=== PATIENT | male | born 1995 | race African-American/Black ===

== ENCOUNTER 2019-09-19 06:55 | Emergency (ER) | payer OTHER ==
[2019-09-19 13:33] VITALS: BP 134/86; TEMP 98.2; O2SAT 99
--- NOTE | 2019-09-24 14:11 | EDPHYS ---
Physician Documentation [facility] Name: Celeste Storm Jr Age: 24 yrs Sex: Male : 1995 Arrival Date: 09/19/2019 Time: 06:59 Bed 12 Private MD: ED Physician Davis Rust HPI: 09/18 07:39 This 24 yrs old Black Male presents to ER via Ambulatory with complaints of Fever. jmm 07:39 Onset: The symptoms/episode began/occurred today. Modifying factors: there are no [facility] obvious modifying factors. Associated signs and symptoms: Pertinent negatives: None. The patient has not experienced similar symptoms in the past. Patient states his temp was measured as 99.2F at work. Denies any symptoms. . Historical: - Allergies: 07:10 No Known Allergies; hb - Home Meds: 07:10 None [Active]; hb - PMHx: 07:10 None; hb - PSHx: 07:10 None; hb - Immunization history:: Adult Immunizations up to date. - Social history:: Smoking status: Patient denies any tobacco usage or history of. ROS: 07:39 Constitutional: Negative for fever, chills, and weight loss, Cardiovascular: Negative jmm for chest pain, palpitations, and edema, Respiratory: Negative for shortness of breath, cough, wheezing, and pleuritic chest pain, Abdomen/GI: Negative for abdominal pain, nausea, vomiting, diarrhea, and constipation, Back: Negative for injury and pain, Neuro: Negative for headache, weakness, numbness, tingling, and seizure. 07:39 All other systems are negative. Exam: 07:39 Constitutional: This is a well developed, well nourished patient who is awake, alert, jmm and in no acute distress. Head/Face: atraumatic. Eyes: EOMI, no conjunctival erythema appreciated ENT: Moist Mucus Membranes Neck: Trachea midline, Supple Chest/axilla: Normal chest wall appearance and motion. 07:39 Back: Normal ROM Skin: General appearance color normal MS/ Extremity: Moves all extremities, no obvious deformities appreciated, no edema noted to the lower extremities Neuro: Awake and alert, normal gait Psych: Behavior is normal, Mood is normal, Patient is cooperative and pleasant 07:39 Cardiovascular: Rate: normal, Rhythm: regular. 07:39 Respiratory: the patient does not display signs of respiratory distress, Respirations: normal, Breath sounds: are clear throughout. 07:39 Abdomen/GI: Inspection: abdomen appears normal, Bowel sounds: normal, Palpation: abdomen is soft and non-tender. Vital Signs: 07:08 BP 134 / 86; Pulse 71; Resp 16; Temp 98.2(TE); Pulse Ox 99% on R/A; Weight 65.77 kg; hb Height 5 ft. 10 in. (177.80 cm); Pain 0/10; 07:08 Body Mass Index 20.81 (65.77 kg, 177.80 cm) hb MDM: 07:[address] [facility] 07:40 Data reviewed: vital signs, nurses notes. Counseling: I had a detailed discussion with radha the patient and/or guardian regarding: the historical points, exam findings, and any diagnostic results supporting the discharge/admit diagnosis, the need for outpatient follow up, to return to the emergency department if symptoms worsen or persist or if there are any questions or concerns that arise at home. ED course: Patient is alert and non toxic in appearance in the ED. No signs of resp distress. . Administered Medications: No medications were administered Disposition: 23:49 Co-signature as Attending Physician, Davis Rust MD. ma2 Disposition: 09/19/19 07:42 Discharged to Home. Impression: Person with feared health complaint in whom no diagnosis is made. - Condition is Stable. - Discharge Instructions: Form - Return To Work. - Medication Reconciliation Form, Thank You Letter, Antibiotic Education, Prescription Opioid Use form. - Follow up: Private Physician; When: As needed; Reason: Recheck today's complaints, Continuance of care, Re-evaluation by your physician. Signatures: Erlin Leyva PA PA jmm Baxter, Heather, RN RN hb Alzahri, Mohammad, MD MD ma2 Corrections: (The following items were deleted from the chart) 07:50 07:42 09/19/2019 07:42 Discharged to Home. Impression: Person with feared health hb complaint in whom no diagnosis is made. Condition is Stable. Forms are Medication Reconciliation Form, Thank You Letter, Antibiotic Education, Prescription Opioid Use. Follow up: Private Physician; When: As needed; Reason: Recheck today's complaints, Continuance of care, Re-evaluation by your physician. radham
--- NOTE | 2019-09-24 14:12 | ER ---
Nurse's Notes [facility] Name: Celeste Storm Jr Age: 24 yrs Sex: Male : 1995 Arrival Date: 09/19/2019 Time: 06:59 Bed 12 Private MD: Diagnosis: Person with feared health complaint in whom no diagnosis is made Presentation: 09/18 07:08 Chief complaint: T99.3 when he was screened at work this morning, sent here for hb clearance. Denies cough/SOB/fever/pain. Coronavirus screen: Proceed with normal triage. Ebola Screen: No symptoms or risks identified at this time. Initial Sepsis Screen: Does the patient meet any 2 criteria? No. Patient's initial sepsis screen is negative. Does the patient have a suspected source of infection? No. Patient's initial sepsis screen is negative. Risk Assessment: Do you want to hurt yourself or someone else? Patient reports no desire to harm self or others. Onset of symptoms was September 19, 2019. 07:08 Method Of Arrival: Ambulatory hb 07:08 Acuity: PAT 5 hb Triage Assessment: 07:09 General: Appears in no apparent distress. Behavior is calm, cooperative. Pain: Denies hb pain. EENT: No signs and/or symptoms were reported regarding the EENT system. Neuro: Level of Consciousness is awake, alert, obeys commands. Cardiovascular: Patient's skin is warm and dry. Respiratory: Respiratory effort is even, unlabored. GI: No signs and/or symptoms were reported involving the gastrointestinal system. : No signs and/or symptoms were reported regarding the genitourinary system. Derm: Skin is pink, warm \T\ dry. Musculoskeletal: No signs and/or symptoms reported regarding the musculoskeletal system. Historical: - Allergies: 07:10 No Known Allergies; hb - Home Meds: 07:10 None [Active]; hb - PMHx: 07:10 None; hb - PSHx: 07:10 None; hb - Immunization history:: Adult Immunizations up to date. - Social history:: Smoking status: Patient denies any tobacco usage or history of. Screenin:29 Abuse screen: Denies threats or abuse. Denies injuries from another. Nutritional hb screening: No deficits noted. Tuberculosis screening: No symptoms or risk factors identified. Fall Risk None identified. Assessment: 07:29 General: SEE TRIAGE. hb Vital Signs: 07:08 BP 134 / 86; Pulse 71; Resp 16; Temp 98.2(TE); Pulse Ox 99% on R/A; Weight 65.77 kg; hb Height 5 ft. 10 in. (177.80 cm); Pain 0/10; 07:08 Body Mass Index 20.81 (65.77 kg, 177.80 cm) hb ED Course: 06:59 Patient arrived in ED. mr 07:10 Triage completed. hb 07:10 Arm band placed on. hb 07:17 Erlin Leyva PA is PHCP. radha 07:17 Davis Rust MD is Attending Physician. radha 07:28 Vicki Guy, RN is Primary Nurse. hb 07:29 Patient has correct armband on for positive identification. Call light in reach. hb 07:49 No provider procedures requiring assistance completed. Patient did not have IV access hb during this emergency room visit. Administered Medications: No medications were administered Outcome: 07:42 Discharge ordered by MD. [facility] 07:49 Discharged to home ambulatory. hb 07:49 Condition: stable 07:49 Discharge instructions given to patient, Instructed on discharge instructions, follow up and referral plans. Demonstrated understanding of instructions, follow-up care. 07:50 Patient left the ED. hb Signatures: Erlin Leyva PA PA jmm Rivera, Mary mr Vicki Guy, RN RN hb
== END 2019-09-19 07:50 | disposition home or self-care (01) ==
LOC: ER 06:55
DX: Z71.1 Person with feared health complaint in whom no diagnosis is made (principal)
CPT/HCPCS: 99281

== ENCOUNTER → 2023-06-07 | Emergency (ER) | payer OTHER ==
[~2023-06-07] MED LIST: CETIRIZINE HCL 5 MG TABLET ONE; DIPHENHYDRAMINE 25 MG TAB/CAP ONE; IBUPROFEN 400 MG TAB ONE; METHYLPREDNISOLONE 125 MG INJ ONE
--- NOTE | 2023-06-07 07:17 | ER ---
Nurse's Notes [facility] Name: Celeste Storm Jr Age: 28 yrs Sex: Male : 1995 Arrival Date: 06/07/2023 Time: 06:15 Bed 19 Private MD: Diagnosis: Nasal congestion Presentation: 06/07 06:46 Chief complaint: Patient states: I think my allergies are acting out redness of eyes, ha1 nasal congestion, and runny nose. 06:46 Coronavirus screen: Vaccine status: Patient reports being unvaccinated. Ebola Screen: ha1 No symptoms or risks identified at this time. Initial Sepsis Screen: Does the patient meet any 2 criteria? No. Patient's initial sepsis screen is negative. Does the patient have a suspected source of infection? No. Patient's initial sepsis screen is negative. Risk Assessment: Do you want to hurt yourself or someone else? Patient reports no desire to harm self or others. Onset of symptoms was June 07, 2023. 06:46 Method Of Arrival: Ambulatory ha1 06:46 Acuity: PAT 4 ha1 Triage Assessment: 06:46 General: Appears uncomfortable, Behavior is cooperative. Pain: Denies pain. Neuro: ha1 Level of Consciousness is awake, alert, obeys commands, Oriented to person, place, time, situation. Cardiovascular: Capillary refill < 3 seconds Patient's skin is warm and dry. Respiratory: Airway is patent Respiratory effort is even, unlabored, Respiratory pattern is regular, symmetrical. GI: No signs and/or symptoms were reported involving the gastrointestinal system. Abdomen is flat, non-distended. : No signs and/or symptoms were reported regarding the genitourinary system. Derm: Skin is normal. Musculoskeletal: Circulation, motion, and sensation intact. Range of motion: intact in all extremities. Historical: - Allergies: 06:56 No Known Allergies; ha1 - PMHx: 06:56 seasonal allergies; ha1 - Immunization history:: Adult Immunizations not up to date. - Social history:: Smoking status: Patient denies any tobacco usage or history of. - Family history:: not pertinent. Screenin:40 [facility] ED Fall Risk Assessment (Adult) History of falling in the last 3 months, ph including since admission No falls in past 3 months (0 pts) Score/Fall Risk Level 0 - 2 = Low Risk Oriented to surroundings, Maintained a safe environment, Provided non-skid footwear, Hourly rounding (assess needs \T\ fall precautionary measures) done. Abuse screen: Denies threats or abuse. Denies injuries from another. Nutritional screening: No deficits noted. Tuberculosis screening: No symptoms or risk factors identified. Assessment: 07:42 General: Appears in no apparent distress. comfortable, Behavior is calm, cooperative, ph appropriate for age. Pain: Denies pain. Neuro: Level of Consciousness is awake, alert, obeys commands, Oriented to person, place, time, situation. Cardiovascular: Capillary refill < 3 seconds in bilateral fingers Patient's skin is warm and dry. Respiratory: Airway is patent Respiratory effort is even, unlabored. GI: No signs and/or symptoms were reported involving the gastrointestinal system. EENT: Eyes are tearing on right eye and left eye Sclera/Cornea are reddened in right eye and left eye. Derm: Skin is pink, warm \T\ dry. Vital Signs: 06:46 BP 131 / 103; Pulse 62; Resp 17 S; Temp 98.5(O); Pulse Ox 100% on R/A; Weight 64.41 kg; ha1 Height 5 ft. 9 in. ; 07:44 BP 129 / 89; Pulse 61; Resp 18; Temp 98; Pulse Ox 99% on R/A; ph 06:46 Body Mass Index 20.97 (64.41 kg, 175.26 cm) ha1 ED Course: 06:20 Patient arrived in ED. gm2 06:46 Evan Rice MD is Attending Physician. sp4 06:46 Patient has correct armband on for positive identification. Bed in low position. Call ha1 light in reach. Side rails up X 1. 06:56 Triage completed. ha1 07:22 Sarah Sorensen, WANDA is Primary Nurse. ph 07:40 Arm band placed on. ph 07:41 No provider procedures requiring assistance completed. Patient did not have IV access ph during this emergency room visit. Administered Medications: 07:39 Drug: diphenhydrAMINE PO 25 mg PO once Route: PO; ph 07:40 Follow up: Response: No adverse reaction ph 07:39 Drug: Loratadine PO 10 mg PO once Route: PO; ph 07:39 Follow up: Response: No adverse reaction ph 07:39 Drug: Ibuprofen PO 800 mg PO once Route: PO; ph 07:39 Follow up: Response: No adverse reaction ph 07:40 Drug: MethylPREDNISolone Sodium Succinate IM 125 mg IM once Route: IM; Site: right ph deltoid; 07:40 Follow up: Response: No adverse reaction ph Medication: 06:59 VIS not applicable for this client. ha1 Outcome: 07:16 Discharge ordered by . leann 07:44 Discharged to home ambulatory, ph 07:44 Condition: good 07:44 Discharge instructions given to patient, Instructed on discharge instructions, follow up and referral plans. medication usage, Demonstrated understanding of instructions, follow-up care, medications, Prescriptions given X 4, 07:45 Patient left the ED. ph Signatures: Sarah Sorensen RN RN ph Lakisha Ramachandran RN RN ha1 Evan Rice MD MD sp4 Gisele Garcia gm2
--- NOTE | 2023-06-07 07:17 | EDPHYS ---
Physician Documentation [facility] Name: Celeste Storm Jr Age: 28 yrs Sex: Male : 1995 Arrival Date: 06/07/2023 Time: 06:15 Bed 19 Private MD: ED Physician Evan Rice HPI: 06/07 06:46 This 28 yrs old Black Male presents to ER via Unassigned with complaints of Nasal sp4 Congestion, Runny Nose, Redness of Eye, Cough. 07:10 28-year-old male presents with 1 week of nasal congestion, difficulty breathing, runny sp4 nose, bilateral eye redness and cough. . Historical: - Allergies: 06:56 No Known Allergies; ha1 - PMHx: 06:56 seasonal allergies; ha1 - Immunization history:: Adult Immunizations not up to date. - Social history:: Smoking status: Patient denies any tobacco usage or history of. - Family history:: not pertinent. ROS: 07:10 Constitutional: Negative for fever, chills, and weight loss, positive for congestion, sp4 cough, runny nose 07:10 All other systems are negative, Exam: 07:10 Constitutional: This is a well developed, well nourished patient who is awake, alert, sp4 and in no acute distress. Head/Face: Normocephalic, atraumatic. Eyes: Pupils equal round and reactive to light, extra-ocular motions intact. Lids and lashes normal. Conjunctiva and sclera are not injected. Cornea within normal limits. Periorbital areas with no swelling, redness, or edema. ENT: Nares patent. Bilateral nasal congestion and runny nose, Tympanic membranes are normal and external auditory canals are clear. Oropharynx with no redness, swelling, or masses, exudates, or evidence of obstruction, uvula midline. Mucous membranes moist. Neck: Trachea midline, no thyromegaly or masses palpated, and no cervical lymphadenopathy. Supple, full range of motion without nuchal rigidity, or vertebral point tenderness. Chest/axilla: Normal chest wall appearance and motion. Nontender with no deformity. No lesions are appreciated. Cardiovascular: Regular rate and rhythm with a normal S1 and S2. No gallops, murmurs, or rubs. Normal PMI, no JVD. No pulse deficits. Respiratory: Lungs have equal breath sounds bilaterally, clear to auscultation and percussion. No rales, rhonchi or wheezes noted. No increased work of breathing, no retractions or nasal flaring. Abdomen/GI: Soft, non-tender, with normal bowel sounds. No distension or tympany. No guarding or rebound. No evidence of tenderness throughout. Back: No spinal tenderness. No costovertebral tenderness. Skin: Warm, dry with normal turgor. Normal color with no rashes, no lesions, and no evidence of cellulitis. MS/ Extremity: Pulses equal, no cyanosis. Neurovascular intact. Full, normal range of motion. Neuro: Awake and alert, GCS 15, oriented to person, place, time, and situation. Cranial nerves II-XII grossly intact. Motor strength 5/5 in all extremities. Sensory grossly intact. Psych: Awake, alert, with orientation to person, place and time. Behavior, mood, and affect are within normal limits Vital Signs: 06:46 BP 131 / 103; Pulse 62; Resp 17 S; Temp 98.5(O); Pulse Ox 100% on R/A; Weight 64.41 kg; ha1 Height 5 ft. 9 in. ; 07:44 BP 129 / 89; Pulse 61; Resp 18; Temp 98; Pulse Ox 99% on R/A; ph 06:46 Body Mass Index 20.97 (64.41 kg, 175.26 cm) ha1 MDM: 06:53 Patient medically screened. sp4 07:12 Data reviewed: vital signs, nurses notes. Consideration of Admission/Observation sp4 Escalation of care including admission/observation considered. ED course: Patient presents with very bothersome congestion. Will provide shot of Solu-Medrol. Otherwise will recommend Benadryl and Claritin also perhaps some phenylephrine and some nasal Afrin. 06/07 06:47 Order name: SARS RAPID sp4 06/07 06:47 Order name: Influenza Screen (a \T\ B) sp4 Administered Medications: 07:39 Drug: diphenhydrAMINE PO 25 mg PO once Route: PO; ph 07:40 Follow up: Response: No adverse reaction ph 07:39 Drug: Loratadine PO 10 mg PO once Route: PO; ph 07:39 Follow up: Response: No adverse reaction ph 07:39 Drug: Ibuprofen PO 800 mg PO once Route: PO; ph 07:39 Follow up: Response: No adverse reaction ph 07:40 Drug: MethylPREDNISolone Sodium Succinate IM 125 mg IM once Route: IM; Site: right ph deltoid; 07:40 Follow up: Response: No adverse reaction ph Disposition Summary: 06/07/23 07:16 Discharge Ordered Notes: Location: Home sp4 Problem: new sp4 Symptoms: are unchanged sp4 Condition: Stable sp4 Diagnosis - Nasal congestion sp4 Followup: sp4 - With: Private Physician - When: 7 - 10 days - Reason: Recheck today's complaints Discharge Instructions: - Discharge Summary Sheet sp4 - Upper Respiratory Infection, Adult, [id number] sp4 Forms: - Work release form ph - Patient Portal Instructions sp4 Prescriptions: - Afrin (oxymetazoline) 0.05 % Nasal spray, non-aerosol - spray 3 spray INTRANASAL route every 12 hours for 5 days; 1 Kit; Refills: 0, sp4 Product Selection Permitted - dextromethorphan-guaifenesin 60-1,200 mg Oral Tablet, Extended Release 12 hr - take 1 tablet ORAL route every 12 hours as needed for flu symptoms; 42 tablet; sp4 Refills: 0, Product Selection Permitted - diphenhydramine HCl 25 mg Oral tablet - take 2 tablet ORAL route every 8 hours PRN congestion; 60 tablet; Refills: 0, sp4 Product Selection Permitted - Ibuprofen 800 mg Oral Tablet - take 1 tablet ORAL route every 8 hours As needed take with food; 30 tablet; sp4 Refills: 0, Product Selection Permitted Signatures: Dispatcher [employer] Sarah Christine RN RN ph Ayala, Heidy, RN RN ha1 Evan Rice MD MD sp4
[2023-06-07 07:22] LABS: SARS-CoV-2 Antigen Rapid Res Negative (Negative)
[2023-06-07 08:07] VITALS: BP 129/89; TEMP 98; O2SAT 99
== END ==
LOC: ER 06:15
DX: R09.81 Nasal congestion (principal); Z11.52 Encounter for screening for COVID-19
CPT/HCPCS: 36415; 87804 ×2; 87811; J2930

== ENCOUNTER → 2023-06-09 | Emergency (ER) | payer OTHER ==
--- NOTE | 2023-06-09 18:23 | ER ---
Nurse's Notes [facility] Name: Celeste Storm Jr Age: 28 yrs Sex: Male : 1995 Arrival Date: 06/09/2023 Time: 18:01 Bed IW4 Private MD: Diagnosis: Other allergic rhinitis;Other acute sinusitis Presentation: 06/09 18:12 Chief complaint: Patient states: Nasal congestion, SOB got worse after mowing today at 1 work. Seen here two days ago, swabs negative. Diagnosed with sinus infection. Coronavirus screen: Vaccine status: Patient reports receiving the 2nd dose of the covid vaccine. Client denies travel out of the [place] in the last 14 days. difficulty breathing, headache, runny nose, Client presents with at least one sign or symptom that may indicate coronavirus-19. Standard/surgical mask placed on the client. Ebola Screen: Patient denies travel to an Ebola-affected area in the 21 days before illness onset. Initial Sepsis Screen: Does the patient meet any 2 criteria? No. Patient's initial sepsis screen is negative. Does the patient have a suspected source of infection? No. Patient's initial sepsis screen is negative. Risk Assessment: Do you want to hurt yourself or someone else? Patient reports no desire to harm self or others. Onset of symptoms was May 30, 2023. 18:12 Method Of Arrival: Ambulatory ll1 18:12 Acuity: PAT 3 ll1 Triage Assessment: 18:17 General: Appears uncomfortable, Behavior is calm, cooperative, appropriate for age. ll1 Pain: Denies pain. EENT: Reports nasal congestion nasal discharge. Neuro: No deficits noted. Respiratory: Reports shortness of breath. 18:29 Pain: Pain currently is 0 out of 10 on a pain scale. Pain began 8 days ago Also ll1 complains of no other associated symptoms. 18:29 Headache History: Denies prior headaches. ll1 Historical: - Allergies: 18:11 No Known Allergies; ll1 - PMHx: 18:11 seasonal allergies; ll1 - Immunization history:: Adult Immunizations up to date. - Social history:: Smoking status: Patient denies any tobacco usage or history of. Screenin:28 [facility] ED Fall Risk Assessment (Adult) Score/Fall Risk Level 0 - 2 = Low Risk ll1 Oriented to surroundings, Maintained a safe environment, Educated pt \T\ family on fall prevention, incl call for assistance when getting out of bed, Hourly rounding (assess needs \T\ fall precautionary measures) done. Abuse screen: Denies threats or abuse. Nutritional screening: No deficits noted. Tuberculosis screening: No symptoms or risk factors identified. Assessment: 18:28 Reassessment: No changes from previously documented assessment. Patient and/or family ll1 updated on plan of care and expected duration. Pain level reassessed. Patient is alert, oriented x 3, equal unlabored respirations, skin warm/dry/pink. Vital Signs: 18:12 BP 135 / 93; Pulse 104; Resp 17; Temp 99.3; Pulse Ox 100% on R/A; Weight 64.86 kg; ll1 Height 5 ft. 9 in. ; Pain 0/10; 18:12 Body Mass Index 21.12 (64.86 kg, 175.26 cm) ll1 18:12 Pain Scale: Adult ll1 ED Course: 18:03 Patient arrived in ED. rg4 18:11 Arm band placed on. ll1 18:14 Marlene Jeff PA-C is [facility]. sb4 18:14 Rai Kumar MD is Attending Physician. sb4 18:17 Triage completed. ll1 18:28 No provider procedures requiring assistance completed. Patient did not have IV access ll1 during this emergency room visit. 18:29 Patient has correct armband on for positive identification. Bed in low position. Call ll1 light in reach. Provided Education on: n/a. Administered Medications: No medications were administered Medication: 18:29 VIS not applicable for this client. ll1 Outcome: 18:22 Discharge ordered by . sb4 18:29 Discharged to home ambulatory, ll1 18:29 Condition: stable 18:29 Discharge instructions given to patient, Instructed on discharge instructions, follow up and referral plans. medication usage, Demonstrated understanding of instructions, follow-up care, medications, Prescriptions given X 2, 18:30 Patient left the ED. ll1 Signatures: Galilea Maciel rg4 Jens Ward RN RN ll1 Marlene Jeff PA-C PA-C sb4
--- NOTE | 2023-06-09 18:23 | EDPHYS ---
Physician Documentation [facility] Name: Celeste Storm Jr Age: 28 yrs Sex: Male : 1995 Arrival Date: 06/09/2023 Time: 18:01 Bed IW4 Private MD: ED Physician Rai Kumar HPI: 06/10 00:24 This 28 yrs old Black Male presents to ER via Ambulatory with complaints of congestion. sb4 00:24 patient reports nasal congestion, sore throat, and shortness of breath for about 1 sb4 week. he was seen here a few days ago, had negative swabs, and discharged. 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 states he takes allergy medication, but is unsure what. Historical: - Allergies: 06/09 18:11 No Known Allergies; ll1 - PMHx: 18:11 seasonal allergies; ll1 - Immunization history:: Adult Immunizations up to date. - Social history:: Smoking status: Patient denies any tobacco usage or history of. ROS: 06/10 00:24 Constitutional: Negative for fever, chills, and weight loss, sb4 ENT: Positive for sinus congestion, sore throat, Respiratory: Positive for shortness of breath, All other systems are negative, Exam: 00:24 Constitutional: This is a well developed, well nourished patient who is awake, alert, sb4 and in no acute distress. Head/Face: Normocephalic, atraumatic. Eyes: Extra-ocular motions intact. Periorbital areas with no swelling, redness, or edema. ENT: Mucous membranes moist. Cardiovascular: Regular rate and rhythm with a normal S1 and S2. Respiratory: Lungs have equal breath sounds bilaterally, clear to auscultation and percussion. No rales, rhonchi or wheezes noted. No increased work of breathing, no retractions or nasal flaring. Abdomen/GI: Soft, non-tender, no distension. Skin: Warm, dry with normal turgor. Normal color with no rashes, no lesions, and no evidence of cellulitis. MS/ Extremity: Pulses equal, no cyanosis. Neurovascular intact. Full, normal range of motion. Neuro: Awake and alert, GCS 15, oriented to person, place, time, and situation. Motor strength 5/5 in all extremities. Sensory grossly intact. Vital Signs: 06/09 18:12 BP 135 / 93; Pulse 104; Resp 17; Temp 99.3; Pulse Ox 100% on R/A; Weight 64.86 kg; ll1 Height 5 ft. 9 in. ; Pain 0/10; 18:12 Body Mass Index 21.12 (64.86 kg, 175.26 cm) ll1 18:12 Pain Scale: Adult ll1 MDM: 18:15 Patient medically screened. sb4 06/10 00:24 Differential Diagnosis: Sinusitis Allergic Rhinitis. Data reviewed: vital signs, nurses sb4 notes, and as a result, I will discharge patient. Counseling: I had a detailed discussion with the patient and/or guardian regarding the historical points, exam findings, and any diagnostic results supporting the discharge/admit diagnosis, the need for outpatient follow up, for definitive care, to return to the emergency department if symptoms worsen or persist or if there are any questions or concerns that arise at home. Administered Medications: No medications were administered Disposition Summary: 06/09/23 18:22 Discharge Ordered Notes: Location: Home sb4 Problem: an ongoing problem sb4 Symptoms: are unchanged sb4 Condition: Stable sb4 Diagnosis - Other allergic rhinitis sb4 - Other acute sinusitis sb4 Followup: sb4 - With: Emergency Department - When: As needed - Reason: Trouble breathing, Worsening of condition Discharge Instructions: - Discharge Summary Sheet ll1 - Sinusitis, Adult, [id number] sb4 - Allergic Rhinitis, Adult, [id number] sb4 Forms: - Work release form ll1 - Medication Reconciliation Form sb4 - Thank You Letter sb4 - Antibiotic Education sb4 - Prescription Opioid Use sb4 - Patient Portal Instructions sb4 - Leadership Thank You Letter sb4 Prescriptions: - fexofenadine 180 mg Oral tablet - take 1 tablet ORAL route daily; 30 tablet; Refills: 0, Product Selection sb4 Permitted - Medrol (Jurgen) 4 mg Oral Tablets, Dose Pack - take 1 tablet ORAL route as directed - follow package instructions; 1 packet; sb4 Refills: 0, Product Selection Permitted Addendum: 23:25 I was immediately available for consultation during this patient's visit. I did not e c2 personally see the patient or discuss the patient with the TALIB. . Signatures: Jens Ward RN RN ll1 Marlene Jeff FRANCIA PA-C sb4 Rai Kumar MD MD ec2
[2023-06-09 18:54] VITALS: BP 122/65; TEMP 97.7; O2SAT 98
== END ==
LOC: ER 18:01
DX: J01.80 Other acute sinusitis (principal); J30.89 Other allergic rhinitis
CPT/HCPCS: 99283

== ENCOUNTER 2024-05-16 13:12 | Emergency (ER) | payer BC ==
[2024-05-16 13:48] LABS: Specific Gravity 1.015 (1.005-1.030); Sqamous Epithelial None Seen /HPF (None Seen); Urine Bacteria None Seen /HPF (<20); Urine Bilirubin NEGATIVE (Negative); Urine Blood Negative (Negative); Urine Clarity Extremely Turbid (Clear); Urine Color Light-Yellow (Yellow); Urine Crystals Unidentified Few /HPF (None Seen); Urine Culture Reflex Order NOT NEEDED; Urine Glucose NEGATIVE (Negative); Urine Ketones NEGATIVE (Negative); Urine Microscopic Reflex YN ORDER UMIC; Urine Nitrite NEGATIVE (Negative); Urine Protein NEGATIVE (Negative); Urine RBC <5 /HPF (None Seen); Urine Urobilinogen Normal (Normal); Urine WBC <5 /HPF (<5); Urine Yeast (Budding) Occasional /HPF (None Seen)
--- NOTE | 2024-05-16 14:02 | ER ---
Nurse's Notes [facility] Name: Celeste Storm Jr Age: 29 yrs Sex: Male : 1995 Arrival Date: 05/16/2024 Time: 13:12 Bed 2 Private MD: Diagnosis: Low back pain Presentation: 05/16 13:20 Chief complaint: Patient states: Right sided flank pain X 2 days. Coronavirus screen: ld1 At this time, the client does not indicate any symptoms associated with coronavirus-19. Ebola Screen: No symptoms or risks identified at this time. Initial Sepsis Screen: Does the patient meet any 2 criteria? No. Patient's initial sepsis screen is negative. Does the patient have a suspected source of infection? No. Patient's initial sepsis screen is negative. Risk Assessment: Do you want to hurt yourself or someone else? Patient reports no desire to harm self or others. Onset of symptoms was May 16, 2024. 13:20 Method Of Arrival: Ambulatory ld1 13:20 Acuity: PAT 3 ld1 Triage Assessment: 13:21 General: Appears in no apparent distress. comfortable, Behavior is calm, cooperative, ld1 appropriate for age. Pain: Complains of pain in right low back Pain does not radiate. Pain currently is 8 out of 10 on a pain scale. Quality of pain is described as sharp, stabbing, throbbing, Pain began suddenly, Is continuous. EENT: No signs and/or symptoms were reported regarding the EENT system. Neuro: Level of Consciousness is awake, alert, obeys commands, Oriented to person, place, time, situation. Cardiovascular: Capillary refill < 3 seconds Patient's skin is warm and dry. Respiratory: Airway is patent Respiratory effort is even, unlabored. GI: Abdomen is flat, non-distended. : Reports pain in right flank(s). Derm: No signs and/or symptoms reported regarding the dermatologic system. Musculoskeletal: Range of motion: intact in all extremities. Historical: - Allergies: 13:21 No Known Allergies; ld1 - Home Meds: 13:21 None [Active]; ld1 - PMHx: 13:21 None; ld1 - PSHx: 13:21 None; ld1 - Immunization history:: Adult Immunizations up to date. - Infectious Disease History:: Denies. - Social history:: Smoking status: Patient denies any tobacco usage or history of. Screenin:38 [facility] ED Fall Risk Assessment (Adult) History of falling in the last 3 months, ph including since admission No falls in past 3 months (0 pts) Confusion or Disorientation No (0 pts) Intoxicated or Sedated No (0 pts) Impaired Gait No (0 pts) Mobility Assist Device Used No (0 pt) Altered Elimination No (0 pt) Score/Fall Risk Level 0 - 2 = Low Risk Oriented to surroundings, Maintained a safe environment, Hourly rounding (assess needs \T\ fall precautionary measures) done. Abuse screen: Denies threats or abuse. Denies injuries from another. Nutritional screening: No deficits noted. Tuberculosis screening: No symptoms or risk factors identified. Assessment: 13:43 General: Appears in no apparent distress. comfortable, well groomed, Behavior is calm, ph cooperative. Pain: Complains of pain in anterior aspect of left lateral abdomen and posterior aspect of left lateral abdomen Pain radiates to left lower quadrant. Neuro: Level of Consciousness is awake, alert, obeys commands, Oriented to person, place, time, situation. Cardiovascular: Capillary refill < 3 seconds in bilateral fingers Patient's skin is warm and dry. Derm: Skin is pink, warm \T\ dry. Vital Signs: 13:20 BP 144 / 91; Pulse 90; Resp 18; Temp 98.2(TE); Pulse Ox 99% on R/A; Weight 73.48 kg; ld1 Height 5 ft. 9 in. ; Pain 5/10; 15:17 BP 127 / 89; Pulse 81; Resp 18; Temp 97.9; Pulse Ox 100% on R/A; ph 13:20 Body Mass Index 23.92 (73.48 kg, 175.26 cm) ld1 13:20 Pain Scale: Adult ld1 ED Course: 13:15 Patient arrived in ED. mr 13:15 Leanna Thompson FNP-C [facility]. kb 13:15 Rai Kumar MD is Attending Physician. kb 13:21 Triage completed. ld1 13:21 Arm band placed on right wrist. ld1 13:29 Mark Horn, RN is Primary Nurse. bp 13:38 Urinalysis w/ reflexes Sent. ph 13:43 Patient has correct armband on for positive identification. Bed in low position. Call ph light in reach. Side rails up X 1. 13:43 Urinalysis w/ reflexes Sent. ph 13:44 Urine collected: clean catch specimen. ph 15:16 No provider procedures requiring assistance completed. Patient did not have IV access ph during this emergency room visit. Administered Medications: 15:16 Drug: Ketorolac IM 30 mg IM once Route: IM; Site: right deltoid; ph 15:16 Follow up: Response: No adverse reaction; Medication administered at discharge. ph Medication: 13:39 VIS not applicable for this client. ph Outcome: 14:01 Discharge ordered by MD. vu 15:17 Discharged to home ambulatory, ph 15:17 Condition: good 15:17 Discharge instructions given to patient, Instructed on discharge instructions, follow up and referral plans. medication usage, Demonstrated understanding of instructions, follow-up care, medications, Prescriptions given X 1, 15:17 Patient left the ED. ph Signatures: Leanna Thompson, TITLE ABSTRACTOR-C TITLE ABSTRACTOR-Ckb Tanya Bermudez, Reg Reg mr Sarah Sorensen, RN RN Mark Horn, RN RN Rashida Soria, WANDA RN ld1 Corrections: (The following items were deleted from the chart) 13:22 13:21 PMHx: seasonal allergies; ld1 ld1 14:08 13:38 Test, Urine+UC.LAB.YUAN drawn and sent. ph EDMS
--- NOTE | 2024-05-16 14:02 | EDPHYS ---
Physician Documentation [facility] Name: Celeste Storm Jr Age: 29 yrs Sex: Male : 1995 Arrival Date: 05/16/2024 Time: 13:12 Bed 2 Private MD: ED Physician Rai Kumar HPI: 05/16 13:28 This 29 yrs old Black Male presents to ER via Ambulatory with complaints of Urinary kb Problem, Back Pain. 13:28 Pt is a 29 year old male who presents for right lower back pain that started 2 days kb ago. Denies urinary symptoms, fevr, n/v, tenderness, injury. States "I think its a urinary infection or something." . Historical: - Allergies: 13:21 No Known Allergies; ld1 - Home Meds: 13:21 None [Active]; ld1 - PMHx: 13:21 None; ld1 - PSHx: 13:21 None; ld1 - Immunization history:: Adult Immunizations up to date. - Infectious Disease History:: Denies. - Social history:: Smoking status: Patient denies any tobacco usage or history of. ROS: 13:29 Constitutional: As per HPI kb Exam: 13:29 Constitutional: This is a well developed, well nourished patient who is awake, alert, kb and in no acute distress. Head/Face: Normocephalic, atraumatic. ENT: Moist Mucous membranes Cardiovascular: Regular rate Respiratory: Respirations even and unlabored. No increased work of breathing. Talking in full sentences Abdomen/GI: Soft, non-tender. No distention Back: No spinal tenderness. No costovertebral tenderness. Full range of motion. Skin: Warm, dry with normal turgor. Normal color. MS/ Extremity: Pulses equal, no cyanosis. Neurovascular intact. Full, normal range of motion. Neuro: Awake and alert, GCS 15, oriented to person, place, time, and situation. Vital Signs: 13:20 BP 144 / 91; Pulse 90; Resp 18; Temp 98.2(TE); Pulse Ox 99% on R/A; Weight 73.48 kg; ld1 Height 5 ft. 9 in. ; Pain 5/10; 15:17 BP 127 / 89; Pulse 81; Resp 18; Temp 97.9; Pulse Ox 100% on R/A; ph 13:20 Body Mass Index 23.92 (73.48 kg, 175.26 cm) ld1 13:20 Pain Scale: Adult ld1 MDM: 13:15 Medical Screening Exam initiated kb 14:00 Differential diagnosis: strain, uti, kidney stone. Data reviewed: vital signs, nurses kb notes. Test considered but Not performed: CT: ct considered but pt has no CVA or bony tenderness. Counseling: I had a detailed discussion with the patient and/or guardian regarding the historical points, exam findings, and any diagnostic results supporting the discharge/admit diagnosis, lab results, the need for outpatient follow up, a family practitioner, to return to the emergency department if symptoms worsen or persist or if there are any questions or concerns that arise at home. 05/16 13:15 Order name: Urinalysis w/ reflexes; Complete Time: 13:53 kb Administered Medications: 15:16 Drug: Ketorolac IM 30 mg IM once Route: IM; Site: right deltoid; ph 15:16 Follow up: Response: No adverse reaction; Medication administered at discharge. ph Disposition Summary: 05/16/24 14:01 Discharge Ordered Notes: Location: Home kb Condition: Stable kb Diagnosis - Low back pain kb Followup: kb - With: Emergency Department - When: As needed - Reason: Worsening of condition Followup: kb - With: Private Physician - When: 2 - 3 days - Reason: Recheck today's complaints, Continuance of care, Re-evaluation by your physician Discharge Instructions: - Discharge Summary Sheet kb - Acute Back Pain, Adult kb - Musculoskeletal Pain kb Forms: - Medication Reconciliation Form kb - Antibiotic Education kb - Prescription Opioid Use kb - Patient Portal Instructions kb - Leadership Thank You Letter kb Prescriptions: - Diclofenac Sodium 75 mg Oral tablet, delayed release (enteric coated) - take 1 tablet ORAL route 2 times per day As needed; 30 tablet; Refills: 0, kb Product Selection Permitted Signatures: Dispatcher [employer] Leanna Ridley FNP-C FNP-Sarah Bills, RN RN Rashida Soria RN RN ld1 Corrections: (The following items were deleted from the chart) 13:22 13:21 PMHx: seasonal allergies; ld1 ld1 14:08 13:15 Test, Urine+UC.LAB.BRZ ordered. EDWA EDMS
[2024-05-16] MEDS ORDERED: KETOROLAC 30 MG/ML INJ ONE (15:09)
[2024-05-16 17:01] VITALS: BP 127/89; TEMP 97.9; O2SAT 100
== END 2024-05-16 15:17 | disposition home or self-care (01) ==
LOC: ER 13:12
DX: M54.50 Low back pain, unspecified (principal)
CPT/HCPCS: 81001; 96372; 99284